=== PATIENT | female | born 1955 | race Caucasian/White ===

== ENCOUNTER 2022-05-30 15:07 | Inpatient (IN) | payer MEDICAID ==
[~2022-05-30] VITALS: Ht 167.6 cm; Wt 89.8 kg
[2022-05-30] MEDS ORDERED: MORPHINE SULFATE 4 MG/ML CPJ (NOT FOR IM USE) IV STA ×2 (17:25→20:27)
[2022-05-30] MEDS ORDERED: ONDANSETRON HCL 4MG/2ML INJ IV STA ×2 (17:25→20:27)
[2022-05-30] MEDS ORDERED: PROPOFOL 200MG/20ML VIAL IV ONE ×2 (18:00→20:30)
[2022-05-30] MEDS ORDERED: KETAMINE HCL 50 MG/ML 10ML IV ONE (18:00)
[2022-05-30] MEDS ORDERED: SODIUM CHLORIDE 0.9% 1,000 ML IV ONE (20:30)
[2022-05-30 21:37] LABS: BASOPHILS % 0.7 % (0.0-2.0); EOSINOPHILS % 0.1 % (0.0-5.0); HEMATOCRIT. 34.2 % (36.0-48.0); HEMOGLOBIN. 11.6 g/dL (12.0-16.0); LYMPHOCYTES % 14.2 % (20.0-50.0); MEAN CORPUSCULAR HEMOGLOBIN 29.1 pg (28.0-32.0); MEAN CORPUSCULAR VOLUME 85.9 fL (81.0-99.0); MEAN PLATELET VOLUME 8.2 fl (7.4-10.4); MONOCYTES % 6.2 % (2.0-8.0); NEUTROPHILS % 78.8 % (40.0-76.0); PLATELET 238 x1000/uL (130-400); RED BLOOD CELL COUNT 3.98 mill/uL (4.2-5.4); RED CELL DISTRIBUTION WIDTH 16.6 % (11.6-14.6)
[2022-05-30 21:48] LABS: CHLORIDE 104 mEq/L (98-107)
[2022-05-30] MEDS ORDERED: MORPHINE SULFATE 4 MG/ML CPJ (NOT FOR IM USE) IV NR (23:45)
[2022-05-30] MEDS ORDERED: ONDANSETRON HCL 4MG/2ML INJ IV NR (23:45)
[2022-05-31] VITALS: BP 157/68
[2022-05-31 00:30] VITALS: BP 157/64
[2022-05-31] MEDS ORDERED: DEXTROSE 50% WATER 50ML SYRINGE IV PRN (01:30)
[2022-05-31 04:00] VITALS: BP 133/63
[2022-05-31 07:01] LABS: HEPATITIS B SURFACE ANTIGEN NEGATIVE
[2022-05-31 08:00] VITALS: BP 132/70
[2022-05-31] MEDS: METFORMIN HCL 500MG TABLET PO SCH ×2 (08:00→17:35)
[2022-05-31] MEDS: BLOOD SUGAR DIAGNOSTIC STRIP TEST SCH ×4 (08:00→20:51)
[2022-05-31] MEDS: INSULIN LISPRO 100 UNITS/ML SUBCUT SCH ×4 (08:01→21:00)
[2022-05-31] MEDS: LISINOPRIL 20MG TABLET PO SCH (08:06)
[2022-05-31] MEDS: ENOXAPARIN 40MG/0.4ML SYR SUBCUT SCH (08:07)
[2022-05-31] MEDS: HYDROCODONE/ACETAMINOPHEN 10/325MG TABLET PO PRN ×2 (15:30→20:50)
[2022-05-31 16:00] VITALS: BP 93/42
[2022-05-31] MEDS ORDERED: NALOXONE HCL 0.4MG/ML VIAL IV PRN (17:00)
[2022-05-31 20:00] VITALS: BP 110/46
[2022-05-31] MEDS: ATORVASTATIN CALCIUM 40MG TABLET PO SCH (20:49)
[2022-06-01] VITALS: BP 115/50
[2022-06-01 04:00] VITALS: BP 113/50
[2022-06-01] MEDS: HYDROCODONE/ACETAMINOPHEN 10/325MG TABLET PO PRN ×4 (06:36→22:06)
[2022-06-01 08:00] VITALS: BP 106/57
[2022-06-01] MEDS: BLOOD SUGAR DIAGNOSTIC STRIP TEST SCH ×4 (08:04→21:31)
[2022-06-01] MEDS: METFORMIN HCL 500MG TABLET PO SCH ×2 (08:04→17:01)
[2022-06-01] MEDS: LISINOPRIL 20MG TABLET PO SCH (08:05)
[2022-06-01] MEDS: ENOXAPARIN 40MG/0.4ML SYR SUBCUT SCH (08:06)
[2022-06-01] MEDS: INSULIN LISPRO 100 UNITS/ML SUBCUT SCH ×4 (08:07→22:11)
[2022-06-01 12:00] VITALS: BP 101/72
[2022-06-01 16:00] VITALS: BP 133/54
[2022-06-01 18:02] LABS: CHLORIDE 102 mEq/L (98-107)
[2022-06-01] MEDS: ATORVASTATIN CALCIUM 40MG TABLET PO SCH (22:06)
[2022-06-02] VITALS: BP 130/52
[2022-06-02 04:00] VITALS: BP 135/57
[2022-06-02] MEDS ORDERED: VANCOMYCIN HCL 1 GM/VIAL ONE (07:00)
[2022-06-02] MEDS ORDERED: POLYMYXIN B SULFATE 500000 UNITS/VIAL ONE ×2 (07:00→08:24)
[2022-06-02] MEDS ORDERED: LIDOCAINE HCL/EPINEPHRINE 1%-EPI 1:100,000 20 ML VIAL ONE (07:01)
[2022-06-02] MEDS ORDERED: LIDOCAINE HCL 1% 20ML VIAL (Pyxis) INJ ONE ×2 (07:01→08:44)
[2022-06-02] MEDS: BLOOD SUGAR DIAGNOSTIC STRIP TEST SCH ×4 (07:20→21:32)
[2022-06-02] MEDS: METFORMIN HCL 500MG TABLET PO SCH ×2 (07:50→17:36)
[2022-06-02] MEDS: INSULIN LISPRO 100 UNITS/ML SUBCUT SCH ×4 (07:50→21:32)
[2022-06-02] MEDS ORDERED: PROPOFOL 200MG/20ML VIAL IV ONE (07:54)
[2022-06-02] MEDS ORDERED: ONDANSETRON HCL 4MG/2ML INJ IV PRN ×2 (08:00→08:30)
[2022-06-02] MEDS ORDERED: MIDAZOLAM HCL 2 MG/2 ML VIAL ONE (08:00)
[2022-06-02] MEDS ORDERED: FENTANYL CITRATE/PF 50MCG/ML 2ML VIAL ONE ×2 (08:17→08:44)
[2022-06-02] MEDS ORDERED: FENTANYL CITRATE/PF 50MCG/ML 2ML VIAL IV PRN (08:30)
[2022-06-02] MEDS ORDERED: MEPERIDINE HCL/PF 25MG/ML CPJ IV PRN (08:30)
[2022-06-02] MEDS ORDERED: CEFAZOLIN SODIUM 1000MG/VIAL ONE (08:43)
[2022-06-02] MEDS ORDERED: SUCCINYLCHOLINE CHLORIDE 200MG/10ML IV ONE (08:43)
[2022-06-02] MEDS ORDERED: ONDANSETRON HCL 4MG/2ML INJ ONE (08:43)
[2022-06-02] MEDS ORDERED: DEXAMETHASONE 4MG/ML 1ML VIAL ONE (08:43)
[2022-06-02] MEDS ORDERED: KETOROLAC 30MG/ML VIAL ONE (08:47)
[2022-06-02] MEDS: LISINOPRIL 20MG TABLET PO SCH (09:00)
[2022-06-02] MEDS: HYDROMORPHONE HCL/PF 2MG/ML CPJ IV PRN ×3 (11:17→12:02)
[2022-06-02 12:00] VITALS: BP 135/66
[2022-06-02 16:00] VITALS: BP 120/60
[2022-06-02] MEDS: HYDROCODONE/ACETAMINOPHEN 5/325MG TABLET PO PRN ×2 (16:07→21:31)
[2022-06-02] MEDS: CEFAZOLIN 1000MG PREMIX 50 ML IV SCH ×2 (16:08→23:49)
[2022-06-02] MEDS: ATORVASTATIN CALCIUM 40MG TABLET PO SCH (21:31)
[2022-06-03 04:00] VITALS: BP 124/56
[2022-06-03] MEDS: HYDROCODONE/ACETAMINOPHEN 5/325MG TABLET PO PRN ×4 (06:06→17:10)
[2022-06-03] MEDS: BLOOD SUGAR DIAGNOSTIC STRIP TEST SCH ×4 (06:52→21:00)
[2022-06-03 06:55] LABS: BASOPHILS % 0.6 % (0.0-2.0); EOSINOPHILS % 1.6 % (0.0-5.0); HEMATOCRIT. 29.6 % (36.0-48.0); HEMOGLOBIN. 9.9 g/dL (12.0-16.0); LYMPHOCYTES % 25.4 % (20.0-50.0); MEAN CORPUSCULAR HEMOGLOBIN 29.1 pg (28.0-32.0); MEAN CORPUSCULAR VOLUME 86.7 fL (81.0-99.0); MONOCYTES % 7.7 % (2.0-8.0); NEUTROPHILS % 64.7 % (40.0-76.0); PLATELET 208 x1000/uL (130-400); RED BLOOD CELL COUNT 3.41 mill/uL (4.2-5.4); RED CELL DISTRIBUTION WIDTH 17.2 % (11.6-14.6)
[2022-06-03 08:00] VITALS: BP 107/41
[2022-06-03] MEDS: LISINOPRIL 20MG TABLET PO SCH (09:00)
[2022-06-03] MEDS: METFORMIN HCL 500MG TABLET PO SCH ×2 (09:50→17:32)
[2022-06-03] MEDS: CEFAZOLIN 1000MG PREMIX 50 ML IV SCH ×2 (09:55→17:56)
[2022-06-03] MEDS: INSULIN LISPRO 100 UNITS/ML SUBCUT SCH ×4 (09:56→22:14)
[2022-06-03 12:00] VITALS: BP 131/54
[2022-06-03 16:00] VITALS: BP 117/52
[2022-06-03 20:00] VITALS: BP 126/56
[2022-06-03] MEDS: ATORVASTATIN CALCIUM 40MG TABLET PO SCH (22:10)
[2022-06-03] MEDS: HYDROMORPHONE HCL/PF 2MG/ML CPJ IV PRN (22:11)
[2022-06-04] VITALS (7 sets, daily range): BP systolic 106–140; BP diastolic 43–60
[2022-06-04] MEDS: HYDROCODONE/ACETAMINOPHEN 5/325MG TABLET PO PRN ×2 (04:16→10:23)
[2022-06-04 07:13] LABS: BASOPHILS % 0.5 % (0.0-2.0); EOSINOPHILS % 1.5 % (0.0-5.0); HEMATOCRIT. 30.4 % (36.0-48.0); HEMOGLOBIN. 10.1 g/dL (12.0-16.0); LYMPHOCYTES % 21.4 % (20.0-50.0); MEAN CORPUSCULAR HEMOGLOBIN 28.6 pg (28.0-32.0); MEAN CORPUSCULAR VOLUME 86.3 fL (81.0-99.0); MEAN PLATELET VOLUME 8.3 fl (7.4-10.4); MONOCYTES % 6.7 % (2.0-8.0); NEUTROPHILS % 69.9 % (40.0-76.0); PLATELET 212 x1000/uL (130-400); RED BLOOD CELL COUNT 3.53 mill/uL (4.2-5.4); RED CELL DISTRIBUTION WIDTH 17.2 % (11.6-14.6)
[2022-06-04] MEDS: BLOOD SUGAR DIAGNOSTIC STRIP TEST SCH ×4 (07:20→21:13)
[2022-06-04] MEDS: LISINOPRIL 20MG TABLET PO SCH (10:00)
[2022-06-04] MEDS: METFORMIN HCL 500MG TABLET PO SCH ×2 (10:00→19:07)
[2022-06-04] MEDS: INSULIN LISPRO 100 UNITS/ML SUBCUT SCH ×4 (10:04→22:30)
[2022-06-04] MEDS ORDERED: HYDR-4001 MT (10:34)
[2022-06-04] MEDS ORDERED: DOCU250C14 MT (10:35)
[2022-06-04] MEDS: HYDROMORPHONE HCL/PF 2MG/ML CPJ IV PRN ×2 (14:28→21:14)
[2022-06-04] MEDS: ATORVASTATIN CALCIUM 40MG TABLET PO SCH (21:13)
[2022-06-05] VITALS: BP 99/58
[2022-06-05 04:00] VITALS: BP 127/56
[2022-06-05] MEDS: HYDROCODONE/ACETAMINOPHEN 5/325MG TABLET PO PRN ×2 (06:45→12:39)
[2022-06-05 07:44] LABS: BASOPHILS % 0.7 % (0.0-2.0); EOSINOPHILS % 1.4 % (0.0-5.0); HEMATOCRIT. 31.9 % (36.0-48.0); HEMOGLOBIN. 11.1 g/dL (12.0-16.0); MEAN CORPUSCULAR HEMOGLOBIN 29.7 pg (28.0-32.0); MEAN CORPUSCULAR VOLUME 85.4 fL (81.0-99.0); MEAN PLATELET VOLUME 8.2 fl (7.4-10.4); MONOCYTES % 6.8 % (2.0-8.0); NEUTROPHILS % 65.1 % (40.0-76.0); PLATELET 243 x1000/uL (130-400); RED BLOOD CELL COUNT 3.74 mill/uL (4.2-5.4); RED CELL DISTRIBUTION WIDTH 17.2 % (11.6-14.6)
[2022-06-05] MEDS: METFORMIN HCL 500MG TABLET PO SCH (08:50)
[2022-06-05] MEDS: INSULIN LISPRO 100 UNITS/ML SUBCUT SCH ×2 (08:53→12:36)
[2022-06-05] MEDS: LISINOPRIL 20MG TABLET PO SCH (10:29)
[2022-06-05 11:55] VITALS: BP 130/45
[2022-06-05 12:39] VITALS: BP 130/45
== END 2022-06-05 13:45 | disposition home health service (06) | DRG 313 ==
LOC: ER 15:13 → 6EST 21:46 → EDBEDREQ 21:50 → EDBEDREQTM 21:50 → ENRESERV 23:31
PROVIDERS: ADMIT Internal Medicine; ATTEND Internal Medicine
PROC: 0QSK04Z Reposition Left Fibula with Internal Fixation Device, Open Approach (ICD-10-PCS; principal; 2022-06-02)
PROC: 0SSG04Z Reposition Left Ankle Joint with Internal Fixation Device, Open Approach (ICD-10-PCS; 2022-06-02)
PROC: 0QSH04Z Reposition Left Tibia with Internal Fixation Device, Open Approach (ICD-10-PCS; 2022-06-02)
DX: S82.842A Displaced bimalleolar fracture of left lower leg, initial encounter for closed fracture (principal); E11.9 Type 2 diabetes mellitus without complications; S93.432A Sprain of tibiofibular ligament of left ankle, initial encounter; E66.9 Obesity, unspecified; I10 Essential (primary) hypertension; Z68.32 Body mass index [BMI] 32.0-32.9, adult; Z20.822 Contact with and (suspected) exposure to COVID-19; W18.30XA Fall on same level, unspecified, initial encounter; Y93.89 Activity, other specified; Y92.89 Other specified places as the place of occurrence of the external cause; Y99.8 Other external cause status
CPT/HCPCS: 36415; 71045; 73600; 73610; 76000; 80048; 80053; 82962; 83036; 85025; 86803; 87070; 87075; 87340; 87426; 93005; 97116; 97162; 97164; 97166; 97530; 97535; 99285; C1713; J0330; J0690; J1100; J1170; J1650; J1815; J1885; J2250; J2270; J2405; J2704; J3010; J3370; J3490; J7030